=== PATIENT | male | born 1975 | race Caucasian/White ===

== ENCOUNTER 2023-10-05 11:20 | Outpatient (CLI) | payer OTHER, SELFPAY ==
--- NOTE | ~2023-10-05 | XR_ITS ---
AP/oblique views of the SI joints CLINICAL HISTORY: Ankylosing spondylitis. FINDINGS: Bilateral SI joints are unremarkable. No erosive change or ankylosis. No sclerosis. There i s moderate degenerative change of the bilateral hip joints, with areas of subchondral cystic change i n the bilateral femoral heads. Soft tissues are unremarkable. IMPRESSION: Unremarkable SI joints. Moderate bilateral hip joint degenerative change with prominent probable subchondral cysts or geodes in the bilateral femoral heads. Reviewed, dictated and finalized at location M. IMPRESSION: Unremarkable SI joints. Moderate bilateral hip joint degenerative change with prominent probable subcho ndral cysts or geodes in the bilateral femoral heads.
--- NOTE | ~2023-10-05 | XR_ITS ---
Right foot Technique: AP, oblique, and lateral views were obtained. Clinical History: Ankylosing spondylitis Findings: No acute fracture or dislocation is seen. Osseous alignment is anatomic. Joint spaces are p reserved without erosive or degenerative change. Soft tissues are unremarkable. Impression: Unremarkable right foot radiographs. Reviewed, dictated and finalized at location . Impression: Unremarkable right foot radiographs.
--- NOTE | ~2023-10-05 | XR_ITS ---
Left foot Technique: AP, oblique, and lateral views were obtained. Clinical History: Ankylosing spondylitis Findings: No acute fracture or dislocation is seen. Osseous alignment is anatomic. Joint spaces are p reserved without erosive or degenerative change. Soft tissues are unremarkable. Impression: Unremarkable left foot radiographs. Reviewed, dictated and finalized at location . Impression: Unremarkable left foot radiographs.
--- NOTE | ~2023-10-05 | XR_ITS ---
Right Hand Technique: PA, oblique, and lateral views were obtained. Clinical History: Ankylosing spondylitis Findings: No acute fracture or dislocation is seen. Osseous alignment is anatomic. Joint spaces are p reserved. Soft tissues are unremarkable. Impression: Unremarkable right hand. Reviewed, dictated and finalized at location . Impression: Unremarkable right hand.
--- NOTE | ~2023-10-05 | XR_ITS ---
Cervical Spine: AP, lateral, open-mouth views Clinical History: Pain Findings: The normal lordotic curve is maintained. There is mild degenerative disc change and moderat e facet arthropathy throughout the cervical spine. No fracture or subluxation. Pre-vertebral soft tis sues are unremarkable. Impression: Moderate degenerative spondylosis. Reviewed, dictated and finalized at [facility]. Impression: Moderate degenerative spondylosis.
--- NOTE | ~2023-10-05 | XR_ITS ---
Thoracic spine: Clinical Indication: Ankylosing spondylitis AP and lateral views were performed. No fracture is seen. There is normal alignment of the vertebrae. Mild degenerative disc changes are present throughout the thoracic spine. Paravertebral soft tissues appear normal. Impression: Mild degenerative disc changes. Reviewed, dictated and finalized at location . Impression: Mild degenerative disc changes.
--- NOTE | ~2023-10-05 | XR_ITS ---
Left Hand Technique: PA, oblique, and lateral views were obtained. Clinical History: Ankylosing spondylitis Findings: No acute fracture or dislocation is seen. Osseous alignment is anatomic. Joint spaces are p reserved. Soft tissues are unremarkable. Impression: Unremarkable left hand. Reviewed, dictated and finalized at location . Impression: Unremarkable left hand.
== END 2023-10-05 11:21 ==
PROVIDERS: PCP Family Medicine
DX: M16.0 Bilateral primary osteoarthritis of hip (principal); M51.34 Other intervertebral disc degeneration, thoracic region; M47.892 Other spondylosis, cervical region
CPT/HCPCS: 72040; 72072; 72202; 73130; 73630

== ENCOUNTER 2024-10-02 08:43 | Emergency (ER) | payer SELFPAY ==
--- NOTE | ~2024-10-02 | XR_ITS ---
XR finger 2nd LT min 2V Ordering provider: Barbie Bowers MD History: . trauma . Comparison: None. FINDINGS: BONES: No acute fracture or dislocation. JOINT SPACES: Normal. SOFT TISSUES: Laceration of the anterior soft tissue of the distal phalanx of the left second finger. IMPRESSION: No acute osseous abnormality. Reviewed, dictated and finalized at location A.
[2024-10-02 08:48] VITALS: BP 145/85; PULSE 78; RESP 18; TEMP 36.6; O2SAT 97
--- OUTSIDE RECORDS SUMMARY | 2024-10-02 09:06 | XMS_ITS ---
Author Organization [facility] Address [address] [place], [place] [id number] Care Team Providers Care Tractor Mechanic Name Role Phone Benny PERKINS, Paula Primary Care Provider Chano Romero Unavailable [phone] REASON FOR VISIT The patient is here for a scheduled rheumatology follow-up MEDICATIONS Medication SIG (Take, Route, Frequency, Duration) Notes Start Date End Date Status meloxicam Active VITAL SIGNS BMI 23.24 kg/m2 10/06/2023 Height 70 in 10/06/2023 Weight 162 lbs 10/06/2023 Encounters Encounter Location Date Provider [facility] [address], [address] [place], [place] [id number] 10/06/2023 Chano Robbins Polyarthralgia M25.5 0 and Low back pain at multiple sites M54.50 ASSESSMENTS Encounter Date Diagnosis Assessment Notes Treatment Notes Treatment Clinical Notes 10/06/2023 Polyarthralgia (ICD-10 - M25.50) 10/06/2023 Low back pain at multiple sites (ICD-10 - M54.50) PLAN OF TREATMENT Medication Medication Name Sig Start Date Stop Date Notes meloxicam Next Appt Details Follow Up: 4 Months, Reason: Progress Notes * Examination Category Sub-Category Detail Notes Rheumatology Misha test: +, 13.5 cm General Constitutional: No acute distres s HEENT: PERRLA, Neck supple, Normal sclerae and conjunctivae Cardiovascular RSR, No murmurs, Nor mal peripheral pulsations, No edema Lungs: clear to ausculation Abdomen: soft, no organomegal y or masses /Rectal: not done Skin: Erythematous swolen left cartilage Neurological: No focal neurologica l findings Heme/Lymphatic: No cervical, axillar y, or inguinal adenopathy Psych: Alert, oriented x 3, Normal affect Musculoskeletal: Normal strength. No muscle atrophy Joint Exam Shoulders No swelling. No tenderness. NROM. Elbows No swelling. No tend erness. NROM. Wrists No swelling. No tend erness. NROM. Hips No tenderness, nestor l ROM, no instability or deformity Knees No swelling, no tend erness, NROM. No instability or deformity Ankles No swelling, no tend erness, NROM., No instability or deformity. All MCPs No swelling, no tend erness, no deformity unless noted below. All PIPs No swelling, no tend erness, no deformity unless noted below. All DIPs No swelling, no tend erness, no deformity unless noted below. All MTPs No swelling, no tend erness, NROM, no deformity unless noted below. History and Physical Notes * HPI (History of Present Illness) Category Sub-Category Detail Notes Rheumatology Joint pain Back pain labs NSAID's Physical Examination Category Sub-Category Detail Notes MDHAQ Summary Function (0-10):: 2 Pain (0-10):: 4 Patient Global Assessment of Disease Activity (0 -10):: 2 RAPID3 Score (0-30):: 8 Physician Global Assessment of Disease Activity (0-10):: 4 Prognosis Good w/tx Erosive Damage No
--- OUTSIDE RECORDS SUMMARY | 2024-10-02 09:06 | XMS_ITS ---
Author Organization [facility] Address [address] [facility] [address] [place], [place] [id number] Care Team Providers Care Power Barker Name Role Phone Benny PERKINS, Paula Primary Care Provider Aurora Robbins Chano Unavailable [phone] RESULTS Component Value Reference Range Notes Complement C4, Serum Reviewed date:09/28/2023 10:42:20 AM Interpretation: Performing Lab:[facility], Phone - [phone], Director - [facility] Notes/Report: Complement C4, Serum 23 12-38 mg/dL Complement, Total (CH50) Reviewed date:09/28/2023 10:42:20 AM Interpretation: Performing [facility], Phone - [phone], Director - [facility] Notes/Report: Complement, Total (CH50) 56 >41 U/mL Age Male Female 1 - 30 days Not Estab. Not Estab. 31 days - 6 months >32 >20 7 months - 17 years >39 >39 >17 years >41 >41 NOTE: The adult ( >17 years ) reference interval range is used to flag abnormals on this report. If the patient is 17 years old or younger, use the table above to determine out of range values. CBC With Differential/Platel et Reviewed date:09/28/2023 10:42:20 AM Interpretation: Performing Lab:[facility], [place], Phone - [phone], Director - [facility] Notes/Report: WBC 9.9 3.4-10.8 x10E3/uL RBC 5.69 4.14-5.80 x10E6/uL Hemoglobin 15.6 13.0-17.7 g/dL Hematocrit 47.6 37.5-51.0 % MCV 84 79-97 fL MCH 27.4 26.6-33.0 pg MCHC 32.8 31.5-35.7 g/dL RDW 13.0 11.6-15.4 % Platelets 273 150-450 x10E3/uL Neutrophils 68 Not Estab. % Lymphs 24 Not Estab. % Monocytes 5 Not Estab. % Eos 2 Not Estab. % Basos 1 Not Estab. % Immature Cells Neutrophils (Absolute) 6.7 1.4-7.0 x10E3/uL Lymphs (Absolute) 2.3 0.7-3.1 x10E3/uL Monocytes(Absolute) 0.5 0.1-0.9 x10E3/uL Eos (Absolute) 0.2 0.0-0.4 x10E3/uL Baso (Absolute) 0.1 0.0-0.2 x10E3/uL Immature Granulocytes 0 Not Estab. % Immature Grans (Abs) 0.0 0.0-0.1 x10E3/uL NRBC Hematology Comments: Sed Rate - Westergren Reviewed date:09/28/2023 10:42:20 AM Interpretation: Performing Lab:[facility] [address], Phone - [phone], Director - [facility] Notes/Report: Sedimentation Rate-Westergren 2 0-15 mm/hr Complement C3, Serum Reviewed date:09/28/2023 10:42:20 AM Interpretation: Performing Lab:[facility] [address], Phone - [phone], Director - [facility] Notes/Report: Complement C3, Serum 100 82-167 mg/dL Rheumatoid Arthritis Factor Reviewed date:09/28/2023 10:42:20 AM Interpretation: Performing Lab:[facility], Phone - [phone], Director - [facility] Notes/Report: Rheumatoid Factor (RF) <10.0 <14.0 IU/mL C-Reactive Protein, Quant Reviewed date:09/28/2023 10:42:20 AM Interpretation: Performing Lab:[facility] [address], [place], Phone - [phone], Director - [facility] Notes/Report: C-Reactive Protein, Quant <1 0-10 mg/L HLA B 27 Disease Association Reviewed date:09/28/2023 10:42:20 AM Interpretation: Performing Lab:[facility], Phone - [phone], Director - [facility] Notes/Report: HLA-B27 Negative HLA-B*27 Negative B27 allele interpretation for all loci based on IMGT/HLA database version 3.51.0 This test was developed and its performance characteristics determined by [facility]. It has not been cleared or approved by the Food and Drug Administration. HLA Lab CLIA ID Number [id number] THis test was performed using Polymerase Chain Reaction (PCR) and Sequence Specific Oligonucleotide Probes (SSOP) technique. Sequence Based Typing (SBT) may be used as a supplemental method when necessary. If you have questions, please call DianDianer service at or email at [email or web address]. CCP IgG Antibodies Reviewed date:09/28/2023 10:42:20 AM Interpretation: Performing Lab:[facility], Phone - [phone], Director - [facility] Notes/Report: Anti-CCP Ab, IgG/IgA 5 0-19 units Negative <20 Weak positive 20 - 39 Moderate positive 40 - 59 Strong positive >59 Comp. Metabolic Panel (14) Reviewed date:09/28/2023 10:42:20 AM Interpretation: Performing Lab:[facility], Phone - [phone], Director - [facility] Notes/Report: Glucose 90 70-99 mg/dL BUN 10 6-24 mg/dL Creatinine 0.91 0.76-1.27 mg/dL eGFR 105 >59 mL/min/1.73 BUN/Creatinine Ratio 11 9-20 Sodium 142 134-144 mmol/L Potassium 4.4 3.5-5.2 mmol/L Chloride 103 96-106 mmol/L Carbon Dioxide, Total 26 20-29 mmol/L Calcium 9.1 8.7-10.2 mg/dL Protein, Total 6.7 6.0-8.5 g/dL Albumin 4.7 4.1-5.1 g/dL Globulin, Total 2.0 1.5-4.5 g/dL A/G Ratio 2.4 1.2-2.2 Bilirubin, Total 0.2 0.0-1.2 mg/dL Alkaline Phosphatase 93 44-121 IU/L AST (SGOT) 15 0-40 IU/L ALT (SGPT) 20 0-44 IU/L LYDIA Panel (LYDIA+NITA+Scl 70+Sj Huang+SjoSSB) Reviewed date:09/28/2023 10:42:20 AM Interpretation: Performing Lab:[facility] [place], [address] [facility], Phone - [phone], Director - [facility] Notes/Report: LYDIA by IFA Rfx Titer/Pattern Negative Negative <1:80 Borderline 1:80 Positive >1:80 ICAP nomenclature: AC-0 For more information about Hep-2 cell patterns use ANApatterns.org, the official website for the International Consensus on Antinuclear Antibody (LYDIA) Patterns (ICAP). VERTICAL ROLL OPERATOR Antibodies <0.2 0.0-0.9 AI Robison Antibodies <0.2 0.0-0.9 AI Antiscleroderma-70 Antibodies <0.2 0.0-0.9 AI Sjogren's Anti-SS-A <0.2 0.0-0.9 AI Sjogren's Anti-SS-B <0.2 0.0-0.9 AI VITAMIN D, 25-HYDROXY, LC/MS /MS Reviewed date:09/28/2023 10:42:20 AM Interpretation: Performing Lab:[facility] [place], [address] [facility], Phone - [phone], Director - [facility] Notes/Report: Vitamin D, 25-Hydroxy 31.6 30.0-100.0 ng/mL Vitamin D deficiency has been defined by the [place] of [employer] and an Endocrine Society practice guideline as a level of serum 25-OH vitamin D less than 20 ng/mL (1,2). The Endocrine Society went on to further define vitamin D insufficiency as a level between 21 and 29 ng/mL (2). 1. IOM ([place] [employer]). 2010. Dietary reference intakes for calcium and D. [place]: The National Academies Press. 2. Darron CHRISTENSEN, [place], Tera LIMON, et al. Evaluation, treatment, and prevention of vitamin D deficiency: an Endocrine Society clinical practice guideline. JCEM. 2010; 96(7):1911-30. DS DNA-CRITHIDIA IFA W/REFLE X TO TITER-[facility] Reviewed date:09/28/2023 10:42:20 AM Interpretation: Performing Lab:[facility] [address], Phone - [phone], Director - [facility] Notes/Report: dsDNA Crithidia luciliae IFA Negative Negative Urinalysis, Complete Reviewed date:09/28/2023 10:42:20 AM Interpretation: Performing Lab:[facility] [address], Phone - [phone], Director - [facility] Notes/Report: Specific Garvin 1.016 1.005-1.030 pH 6.5 5.0-7.5 Urine-Color Yellow Yellow Appearance Clear Clear WBC Esterase Negative Negative Protein Negative Negative/Trace Glucose Negative Negative Ketones Negative Negative Occult Blood Negative Negative Bilirubin Negative Negative Urobilinogen,Semi-Qn 0.2 0.2-1.0 mg/dL Nitrite, Urine Negative Negative Microscopic Examination Micr oscopic follows if indicated. Microscopic Examination See below: Micr oscopic was indicated and was performed. WBC None seen 0 - 5 /hpf RBC None seen 0 - 2 /hpf Epithelial Cells (non renal) None seen 0 - 10 /hpf Epithelial Cells (renal) Casts None seen None seen /lpf Cast Type Crystals Crystal Type Mucus Threads Bacteria None seen None seen/Few Yeast Trichomonas Comment Acute Hepatitis Reviewed date:09/28/2023 10:42:20 AM Interpretation: Performing Lab:[facility] [place], [address] [place] [address], Phone - [phone], Director - [facility] Notes/Report: Hep A Ab, IgM Negative Negative HBsAg Screen Negative Negative Hep B Core Ab, IgM Negative Negative HCV Ab Non Reactive Non Reactive Interpretation: Not infected with HCV unless early or acute infection is suspected (which may be delayed in an immunocompromised individual), or other evidence exists to indicate HCV infection. REASON FOR VISIT joint pain/swelling MEDICATIONS Medication SIG (Take, Route, Frequency, Duration) Notes Start Date End Date Status meloxicam Active PROBLEMS Problem Type ICD Code Onset Dates Problem Status W/U Status Risk SNOMED Code Notes Problem Polyarthralgia (M25.50) Active confirmed 84783350 Problem Low back pain at multiple sites (M54.50) Active confirmed 847884278 VITAL SIGNS BMI 23.96 kg/m2 09/20/2023 Blood pressure systolic 120 mm Hg 09/20/19 24 Blood pressure diastolic 72 mm Hg Heart Rate 89 /min 09/20/2023 Height 70 in 09/20/2023 Weight 167 lbs 09/20/2023 Encounters Encounter Location Date Provider Diagnosis [facility] [address] [facility], [address] [place], [place] [phone] 09/20/2023 Akaris Murilloe Polyarthralgia M25.5 0 ; Low back pain at multiple sites M54.50 ; Change in nail appearance L60.8 ; Encounter for other specified special examinations Z01.89 and Encounter for screening for nutritional disorder Z13.21 ASSESSMENTS Encounter Date Diagnosis Assessment Notes Treatment Notes Treatment Clinical Notes 09/20/2023 Polyarthralgia (ICD-10 - M25.50) 09/20/2023 Low back pain at multiple sites (ICD-10 - M54.50) 09/20/2023 Change in nail appearance (ICD-10 - L60.8) 09/20/2023 Encounter for other specified special examinations (ICD-10 - Z01.89) 09/20/2023 Encounter for screening for nutritional disorder (ICD-10 - Z13.21) PLAN OF TREATMENT Pending Test Test Name Order Date X ray : Hand left- outside order 024 X ray : Hand right- outside order 2023 X ray : Spines, cervical- outside order 09/20/2023 X ray : SI joints- outside order 024 X ray : Foot Left- outside order X ray : Foot Right- outside order 2023 X ray : Spines, thoracic- outside order 09/20/2023 Progress Notes * Examination Category Sub-Category Detail [...] MDHAQ Summary Function (0-10):: 2 Pain (0-10):: 4.5 Patient Global Assessment of Disease Activity (0 -10):: 3.5 RAPID3 Score (0-30):: 10 Physician Global Assessment of Disease Activity (0-10):: 4 Prognosis Good w/tx Erosive Damage No
--- OUTSIDE RECORDS SUMMARY | 2024-10-02 09:07 | XMS_ITS | Continuity of Care Document ---
Author Organization [facility] Address [address] [place] [address] [place] [address] Phone Care Team Providers Care Oracle Drm Consultant Name Role Phone Jeremie Broussard MD Unavailable Unavailable Allergies, Adverse Reactions, Alerts Substance Reaction Status Criticality No Known Allergies Active No Inform ation Medications Medication Instructions Dosage Effective Dates (start - stop) Status Comments Ultram 50 mg tablet take 1 tablet (50MG) by oral route every 6 hours as needed - Active PRN for pain, avoid driving or operate machines Procedures Procedure Date OFFICE/OUTPATIENT VISIT, [facility] Advance Directives Directive Yes / No Effective Date File Name No Information Encounters Encounter Description Practice Location Reason(s) For Visit Diagnoses Date Provider Providers Copied on Encounter OFFICE/OUTPAT IENT VISIT, [facility], [address] [place], [id number], tel:[phone] [facility] [place], [facility] chronic pain (chief complaint) Dietary surveillance and counselingCHRONIC PAIN NEC 3 Bobo Chao. [address] [place], [place], [id number] , [place]. tel:[phone] Family History Family Member Type Diagnosis Age At Onset Father Problem (finding) Alive and well Mother Problem (finding) Alive and well Payers Payer name Insurance type Covered democrat ID Authoriza tion(s) No Information Social History Type Description Quantity Date Captured Comments Alcohol Use Details Caffeine Use Details Unknown Tobacco Use Status No Information Smoking Status Current every day smoker Smoking Tobacco Use Details Cigarette: No Details Available Cigarette: 0 Packs per day Sex Male Vital Signs Date / Time: Height Weight BMI Pulse Rate Blood Pressure Temperature Respiratory Rate Body Surface Area Head Circumference BMI percentile Pulse Ox Inhaled Ox 9:39 AM 71.00 in 182.00 lbs 25.3 8 kg/m eter (2) 77 /min 117/75 mm[Hg] 98.2 F 16 /min Chief Complaint And Reason For Visit From encounter dated '05/26/2013 09:30'. chronic pain (chief complaint) Plan Of Treatment Date Type Action Status No Information History Of Present Illness Encounter Date Complaint History Of Prese nt Illness No Information Instructions Date Instruction Additional Infor mation Dietary counseling Related to Di etary surveillance counseling Decrease caloric intake Related to Dietary surveillance counseling Assessments Type Assessment Date No Information Mental Status Date Cognitive Assessment Orientation - [place] ed to time, place, person, situation.
--- OUTSIDE RECORDS SUMMARY | 2024-10-02 09:07 | XMS_ITS | Patient Health Record ---
Author Organization [facility] Address [address] [place] [phone] Care Team Providers Care Search Engineer Name Role Phone Paula Zapata MD Primary Care Provider Chano Romero [phone] REASON FOR REFERRAL No Information MEDICATIONS Medication SIG (Take, Route, Frequency, Duration) Notes Start Date End Date Status meloxicam Active SOCIAL HISTORY Sex Assigned At : Social History Observation Description Sex Assigned At Unknown PROBLEMS Problem Type ICD Code Onset Dates Problem Status W/U Status Risk SNOMED Code Notes Problem Polyarthralgia (M25.50) Active confirmed 69591823 Problem Low back pain at multiple sites (M54.50) Active confirmed 132377007 VITAL SIGNS Height 70 in 10/06/2023 Weight 162 lbs 10/06/2023 BMI 23.24 kg/m2 10/06/2023 Encounters Encounter Location Date Provider [facility] [address] [place] [address] Elisabeth, [address] [phone] 10/06/2023 Akaris Robbins Polyarthralgia M25.5 0 and Low back pain at multiple sites M54.50 [facility] [address] [place] [address] Elisabeth, [address] [place], [place] [phone] 10/07/2023 Akaris Itzel ASSESSMENTS Encounter Date Diagnosis Assessment Notes Treatment Notes Treatment Clinical Notes 10/06/2023 Polyarthralgia (ICD-10 - M25.50) 10/06/2023 Low back pain at multiple sites (ICD-10 - M54.50) PLAN OF TREATMENT Pending Test Test Name Order Date X ray : Hand left- outside order 024 X ray : Hand right- outside order 2023 X ray : Spines, cervical- outside order 09/20/2023 X ray : SI joints- outside order 024 X ray : Foot Left- outside order 024 X ray : Foot Right- outside order 2023 X ray : Spines, thoracic- outside order 09/20/2023 Insurance Providers Payer Name Payer Address Payer Phone Subscriber Number Group Number Insured Name Patient Relationship to Insured Coverage Start Date Coverage End Date Cigna O [address] Diana caMARLEEN [phone] [id number] Kvng Carrasco Self - patient is the insured 4 MEDICAL (GENERAL) HISTORY Medical History History ICD Code Ringing in ears swelling of ankles/feet Surgical History Surgery Date(Month/Year) elbow 09/1992
--- OUTSIDE RECORDS SUMMARY | 2024-10-02 09:07 | XMS_ITS | Clinical Summary ---
Author Organization [facility] [employer] [place] Address [address] [place] [address] [place] [address] Care Team Providers Care Expeller Worker Name Role Phone Paula Zapata MD Primary Care Provider [phone] Allergies No known active allergies Medications cholecalciferol (Vitamin D3) 25 mcg (1,000 unit) Tablet, ChewableIndicat ions:Vitamin D deficiency Take 2 Tablets (2,000 Units) by mouth daily. 1 Tablet 04/02/2023 Active meloxicam (MOBIC) 7.5 mg tabletIndicatio ns:Chronic joint pain Take 1 Tablet (7.5 mg) by mouth daily. Take with food. 30 Tablet 07/12/2023 Active Active Problems Problem Noted Date Diagnosed Date Vitamin D deficiency 04/02/2023 Chronic joint pain 03/03/2023 Overview (03/09/2023): 02/2023- Serum autoimmune studies negative. Enc rheumatology consult Tobacco use 01/26/2019 Encounters Date Type Department Care Team Description 09/12/2024 External Device Data [facility] ABSTRACTION Provider, Abstract 08/08/2024 External Device Data [facility]STRACTION Provider, Abstract 08/08/2024 External Device Data [facility] Provider, Abstract 08/05/2024 External Device Data [facility] Provider, Abstract 08/04/2024 External Device Data [facility] Provider, Abstract 07/25/2024 External Device Data [facility]STRACTION Provider, Abstract from Last 3 Months Immunizations Immunization Administration Dates Next Due (ADACEL/BOOSTRIX)(10 YR UP) TDAP VACCINE, 0.5ML, IM 01/25/2019 INFLUENZA VACCINE QUADRIVALENT 6 MOS UP PF IM Family History Medical History Relation Name Comments No Known Problems Brother Lung Cancer Father Other Father tobacco use Alzheimer's Disease Maternal Grandmother Alzheimer's Disease Mother Relation Name Status Comments Brother Alive Father Maternal Grandmother Mother Social History Tobacco Use Types Packs/Day Years Used Date Smoking Tobacco: Every Day Cigarettes Smokeless Tobacco: Never Alcohol Use Standard Drinks/Week Comments Yes 0 (1 standard drink = 0.6 oz pur e alcohol) Sex and Gender Information Value Date Recorded Sex Assigned at Not on file Legal Sex Male 7:54 AM CDT Gender Identity Not on file Sexual Orientation Not on file Last Filed Vital Signs Vital Sign Reading Time Taken Comments Blood Pressure 126/74 08/24/2023 1:12 PM CDT Pulse 100 07/28/2023 1:04 PM TURNTABLE MAN Temperature 36.3 C (97.3 F) 07/28/2023 1:04 PM TURNTABLE MAN Respiratory Rate 18 07/28/2023 1:04 PM TURNTABLE MAN Oxygen Saturation 93% 07/28/2023 1:04 PM TURNTABLE MAN Inhaled Oxygen Concentration - - Weight 73.9 kg (163 lb) 08/24/2023 1:12 PM CDT Height 177.8 cm (5' 10 ) 08/24/2023 1:12 PM CDT Body Mass Index 23.39 08/24/2023 1:12 PM CDT Plan of Treatment Health Maintenance Due Date Last Done Comments HEPATITIS B VACCINES (1 of 3 - 19+ 3-dose series) 01/1996 COLORECTAL SCREENING 2021 Colorectal Cancer Screening 2021 FIT-DNA Q 3 years 2021 FIT/FOBT Q 1 year 2021 Flex Sig/CT Colonography Q 5 years 2021 INFLUENZA VACCINE (#1) 2023 02/27/2020 DTAP/TDAP/TD VACCINES (2 - Td or Tdap) 01/25/2029 Insurance * Guarantor: [employer]) Account Type Relation to Patient Date of Phone Billing Address Corporate Employer ATTN: KRISTIN DALY [address] [address] [employer] Care Teams Expeller Worker Relationship Specialty Start Date End Date Paula Zapata MD [address] [place] [address] PCP - General Family Practice 07/28/23
--- OUTSIDE RECORDS SUMMARY | 2024-10-02 09:07 | XMS_ITS ---
Author Organization [facility] [employer] [employer] Address [address] [place], [place] [id number] Care Team Providers Care Food And Beverage Assistant Manager Name Role Phone Benny PERKINS, Paula Primary Care Provider Chano Romero Unavailable [phone] Encounters Encounter Location Date Provider Diagnosis [facility] [address], [facility] [address] [place], [place] [id number] 10/07/2023 Chano Robbins PLAN OF TREATMENT No Information
--- OUTSIDE RECORDS SUMMARY | 2024-10-02 09:59 | XMS_ITS | Clinical Summary ---
Author Organization [facility] [employer] [place] Address [address] [place] [address] [place] [address] Care Team Providers Care Sand Mixer Operator Name Role Phone Paula Zapata MD Primary Care Provider [phone] Allergies No known active allergies Medications cholecalciferol [...] PM CDT Pulse 100 07/28/2023 1:04 PM EXPLOSIVE ORDNANCE MANAGER Temperature 36.3 C (97.3 F) 07/28/2023 1:04 PM EXPLOSIVE ORDNANCE MANAGER Respiratory Rate 18 07/28/2023 1:04 PM EXPLOSIVE ORDNANCE MANAGER Oxygen Saturation 93% 07/28/2023 1:04 PM EXPLOSIVE ORDNANCE MANAGER Inhaled Oxygen Concentration - - Weight 73.9 [...] Address Corporate Employer ATTN: KRISTIN DALY [address] [address] [employer] Care Teams Sand Mixer Operator Relationship Specialty Start Date End Date Paula Zapata MD [address] [place] [address] PCP - General Family Practice 07/28/23
--- OUTSIDE RECORDS SUMMARY | 2024-10-02 09:59 | XMS_ITS | Continuity of Care Document ---
Author Organization [facility] Address [address] [place] [address] [place] [address] Phone Care Team Providers Care Doorperson Or Luggage Porter Name Role Phone Jeremie Broussard MD Unavailable [...] operate machines Procedures Procedure Date OFFICE/[facility]PATIENT VISIT, [facility] Advance Directives Directive Yes / No Effective Date File Name No Information Encounters Encounter Description Practice Location Reason(s) For Visit Diagnoses Date Provider Providers Copied on Encounter OFFICE/OUTPAT IENT VISIT, [facility], [address] [place], [id number], tel:[phone] [facility] chronic pain (chief complaint) Dietary surveillance and counselingCHRONIC PAIN NEC [address] [place], [place], [id number] , [place]. tel:[phone] Family History Family Member Type Diagnosis Age [...] Mental Status Date Cognitive Assessment Orientation - Acworth ed to time, place, person, situation.
--- NOTE | 2024-10-02 10:04 | ED_ITS ---
HPI - Wound/Laceration General Chief Complaint: Wound/Laceration Stated Complaint: cut L pointer finger on chainsaw yesterday Time Seen by Provider: 10/02/24 09:08 Source: patient Mode of arrival: ambulatory Limitations: no limitations History of Present Illness HPI narrative: This is a 49-year-old male that presents to the emergency department for laceration to his left 2nd finger. Reports he cut it yesterday afternoon around 1:00 p.m. with a chain saw. He went to urgent care and was advised to go to the ER. He does not currently have insurance so he tried to avoid this. Reports he is up-to-date on tetanus vaccination. Denies decreased range of motion or numbness. Related Data Allergies Allergy/AdvReac Type Severity Reaction Status Date / Time No Known Allergies Allergy Verified 10/02/24 08:45 Review of Systems Review of Systems: CONSTITUTIONAL: Denies fever SKIN: Reports laceration NEUROLOGIC: Denies numbness All systems reviewed & are unremarkable except as noted in HPI and below PMFSH Past Medical History Medical History (Updated 10/02/24 @ 10:18 by Jessa Salamanca PA-C) No active medical problems Social History Social History (Updated 10/02/24 @ 10:18 by Jessa Salamanca PA-C) Smoking status: Current every day smoker Exam Narrative: GENERAL: Well-appearing, well-nourished, and in no acute distress. HEAD: Normocephalic, atraumatic. EYES: EOMI. EXTREMITIES: Normal range of motion. No edema. Left 2nd finger with large irregular laceration to the distal phalanx palmar surface. Normal sensation SKIN: Warm, dry, no rash. NEURO: No focal deficits. Alert and oriented x3. PSYCH: Normal mood and affect Course Course Emergency Course: Patient educated on further wound care Vital Signs Vital signs: Vital Signs Temperature 97.9 F 10/02/24 08:48 Pulse Rate 78 10/02/24 08:48 Respiratory Rate 18 10/02/24 08:48 Blood Pressure 145/85 H 10/02/24 08:48 Pulse Oximetry 97 10/02/24 08:48 Oxygen Delivery Room Air 10/02/24 08:48 Temperature 97.9 F 10/02/24 08:48 Pulse Rate 78 10/02/24 08:48 Respiratory Rate 18 10/02/24 08:48 Blood Pressure 145/85 H 10/02/24 08:48 Pulse Oximetry 97 10/02/24 08:48 Oxygen Delivery Room Air 10/02/24 08:48 Procedures Laceration Laceration 1: Date: 10/02/24 Time: 10:20 Site: hand Side (If applicable): left Description: irregular Depth: simple, single layer Local Anesthetic: lidocaine 1% Amount of anesthesia used (mL): 2 Pre-repair: wound explored, irrigated extensively and minor debridement ====== Skin Level ====== Skin layer closed with: steri strips ====== Subcutaneous Layer ====== ====== Muscle Layer ====== ====== Tendon Layer ====== MDM - Wound/Laceration MDM Narrative Medical decision making narrative: Patient presents to emergency department for a laceration to the left 2nd finger sustained yesterday afternoon around 1:00 p.m. via a chain saw. The wound is too old for closure, it is very irregular. I did debride what I could and irrigated the wound. I applied some Steri-Strips and antibiotic ointment. Patient will be started on prophylactic antibiotics. Was given information for follow-up with Hand surgery. X-ray without acute osseous abnormalities. Jailene ent up-to-date on tetanus vaccination. He was given warnings to return to the ER Differential Diagnosis Differential diagnosis: Likely laceration, abrasion and avulsion of skin Imaging Data Radiologist's impression: ITS Impressions Finger X-Ray 10/02/24 09:26 IMPRESSION: No acute osseous abnormality. Critical Care Time Critical Care Time Critical Care Time: No Discharge Plan Discharge Clinical Impression: Laceration Patient Disposition: Home Condition: Stable Instructions: Antibiotic Form, Laceration Without Closure (ED) Additional Instructions: Return to the emergency department if you experience fever, redness or swelling of your wound, abnormal drainage from your wound, or any other symptoms that are concerning to you. Apply antibiotic ointment daily. Do not soak the wound. Clean with mild soap and water daily. Take oral antibiotic as prescribed Follow-up with hand surgery (Deniz Sheppard) for wound check/ further management Patient Language: Russian Prescriptions: New cephalexin 500 mg tablet 500 mg PO Q6H 7 Days Qty: 28 0RF Follow-up/Referrals: Anay Sheppard MD [Physician] - PHYSICIAN,LEAFLET OR NEWSPAPER DELIVERER [Primary Care Provider] -
[2024-10-02 10:10] VITALS: BP 140/80; PULSE 80; RESP 16; TEMP 36.7; O2SAT 100
[2024-10-02] MEDS: LIDOCAINE 1% LOCAL INJ 10 ML VIAL (10:22)
[2024-10-02 10:27] VITALS: BP 140/70; PULSE 80; RESP 18; TEMP 36.8; O2SAT 100
== END 2024-10-02 10:10 | disposition home or self-care (01) ==
PROVIDERS: Emergency Provider Physician Assistant
DX: S61.211A Laceration without foreign body of left index finger without damage to nail, initial encounter (principal); W29.3XXA Contact with powered garden and outdoor hand tools and machinery, initial encounter; F17.200 Nicotine dependence, unspecified, uncomplicated
CPT/HCPCS: 11000; 73140; 99283; J2003